=== PATIENT | female | born 1995 | race Two or more races ===

== ENCOUNTER 2020-08-08 18:52 | Emergency (ER) | payer BC ==
[2020-08-08 19:01] VITALS: BP 95/62; PULSE 100; TEMP 98.5; BMI 32.0
[2020-08-08] MEDS ORDERED: DEXTROSE 5%-LACTATED RINGERS 500 ML IV SCH (20:25)
[2020-08-08] MEDS ORDERED: DEXTROSE 5%-LACTATED RINGERS 1,000 ML IV SCH (21:25)
[2020-08-08 21:50] LABS: BASO % 0.2 % (0-2.0); EOS % 4.6 % (0-4.5); HEMATOCRIT 34.1 % (32.4-45.2); HEMOGLOBIN 11.2 GM/dL (10.7-15.3); LYMPH % 22.3 % (8-40); MCH 27.1 pg (25.7-33.7); MEAN CELL VOLUME 82.2 fl (80-96); MEAN PLT VOLUME 12.7 fl (7.5-11.1); MONO % 7.3 % (3.8-10.2); NEUT % 65.6 % (42.8-82.8); RBC 4.15 M/mm3 (3.60-5.2); RDW 15.1 % (11.6-15.6); WHITE BLOOD COUNT 11.9 K/mm3 (4.0-10.0)
[2020-08-08 21:52] LABS: URINE APPEARANCE CLOUDY; URINE BILIRUBIN NEGATIVE (NEGATIVE); URINE COLOR YELLOW; URINE GLUCOSE (UA) TRACE (NEGATIVE); URINE KETONE NEGATIVE (NEGATIVE); URINE LEUK ESTERASE NEGATIVE (NEGATIVE); URINE NITRITE NEGATIVE (NEGATIVE); URINE PROTEIN NEGATIVE (NEGATIVE); URINE UROBILINOGEN 0.2 mg/dL (0.2-1.0)
[2020-08-08 22:16] LABS: CALCIUM 7.8 mg/dL (8.5-10.1)
[2020-08-08 22:17] LABS: ALBUMIN 2.5 g/dl (3.4-5.0); BLOOD UREA NITROGEN 5.1 mg/dL (7-18)
[2020-08-08 22:20] LABS: CREATININE 0.4 mg/dL (0.55-1.3)
[2020-08-08 22:21] LABS: BILIRUBIN,TOTAL 0.2 mg/dL (0.2-1)
[2020-08-08 22:24] LABS: PLATELET COUNT 134 K/MM3 (134-434); PLATELET ESTIMATE DECREASED
[2020-08-08] MEDS ORDERED: ONDANSETRON 4 MG/2 ML VIAL ONE (23:00)
[2020-08-08] MEDS ORDERED: ONDANSETRON 4 MG/2 ML VIAL IVPB ONE (23:00)
[2020-08-08] MEDS ORDERED: ACETAMINOPHEN INJECTION 100 ML IVPB ONE (23:41)
[2020-08-08] MEDS ORDERED: ACETAMINOPHEN 1000 MG/100 ML VIAL (NON FORMULARY) IVPB ONE (23:45)
== END 2020-08-09 01:13 | disposition home or self-care (01) ==
LOC: JER 18:52
PROC: 3E0333Z Introduction of Anti-inflammatory into Peripheral Vein, Percutaneous Approach (ICD-10-PCS; principal; 2020-08-08)
PROC: 3E033GC Introduction of Other Therapeutic Substance into Peripheral Vein, Percutaneous Approach (ICD-10-PCS; 2020-08-08)
PROC: 3E033GC Introduction of Other Therapeutic Substance into Peripheral Vein, Percutaneous Approach (ICD-10-PCS; 2020-08-08)
PROC: 3E033GC Introduction of Other Therapeutic Substance into Peripheral Vein, Percutaneous Approach (ICD-10-PCS; 2020-08-08)
DX: O21.9 Vomiting of pregnancy, unspecified (principal); Z3A.27 27 weeks gestation of pregnancy
CPT/HCPCS: 36415; 76815; 80053; 81003; 85025; 99284-25; C9803; J0131; U0003; U0005

== ENCOUNTER 2020-09-13 23:36 | Emergency (ER) | payer BC ==
[2020-09-13] MEDS ORDERED: ACETAMINOPHEN 500 MG TABLET (FP) PO ONE (23:54)
[2020-09-14 00:10] VITALS: BP 100/66; PULSE 103; TEMP 98.1; BMI 32.9
[2020-09-14] MEDS ORDERED: CEPHALEXIN MONOHYDRATE 500 MG CAPSULE (UD) PO ONE (00:16)
[2020-09-14] MEDS ORDERED: DIPHTH,PERTUSS(ACELL),TET 0.5 ML DISP.SYRIN IM ONE ×2 (00:27→00:38)
[2020-09-14] MEDS ORDERED: ACETAMINOPHEN 500 MG TABLET (FP) ONE (00:35)
[2020-09-14] MEDS ORDERED: CEPHALEXIN MONOHYDRATE 500 MG CAPSULE (UD) ONE (00:38)
== END 2020-09-14 00:55 | disposition home or self-care (01) ==
LOC: JER 23:36
PROC: 3E0234Z Introduction of Serum, Toxoid and Vaccine into Muscle, Percutaneous Approach (ICD-10-PCS; principal; 2020-09-14)
DX: S60.112A Contusion of left thumb with damage to nail, initial encounter (principal)
CPT/HCPCS: 73140-TC-LT-FY; 90715; 99284-25

== ENCOUNTER 2020-11-02 17:20 | Inpatient (IN) | payer BC ==
[2020-11-02] MEDS ORDERED: ELECTROLYTE-148 SOLN 1,000 ML IV SCH ×3 (17:30→21:15)
[2020-11-02 18:10] VITALS: BMI 27.4
[2020-11-02 20:56] LABS: HEMATOCRIT 38.6 % (32.4-45.2); HEMOGLOBIN 12.9 GM/dL (10.7-15.3); MCH 27.7 pg (25.7-33.7); MCHC 33.4 g/dl (32.0-36.0); MEAN PLT VOLUME 12.1 fl (7.5-11.1); PLATELET COUNT 63 10^3/uL (134-434); RBC 4.65 M/mm3 (3.60-5.2); RDW 18.6 % (11.6-15.6); WHITE BLOOD COUNT 10.1 K/mm3 (4.0-10.0)
[2020-11-02] MEDS ORDERED: PROMETHAZINE HCL 25 MG/1 ML VIAL IVPUSH ONE (21:01)
[2020-11-02] MEDS ORDERED: BUTORPHANOL TARTRATE 2 MG/ML VIAL IVPB ONE (21:01)
[2020-11-02] MEDS ORDERED: DEXTROSE 5%-LACTATED RINGERS 1,000 ML IV SCH (21:15)
[2020-11-02] MEDS ORDERED: OXYTOCIN 30 UNITS in 0.9% NS 30 UNIT/500 ML INFUS.BAG IVPB SCH (21:30)
[2020-11-02] MEDS ORDERED: OXYTOCIN 30 UNITS in 0.9% NS 30 UNIT/500 ML INFUS.BAG IVPB ONE (22:45)
[2020-11-03] MEDS ORDERED: BUTORPHANOL TARTRATE 2 MG/ML VIAL ONE (00:08)
[2020-11-03] MEDS ORDERED: PROMETHAZINE HCL 25 MG/1 ML VIAL ONE (00:08)
[2020-11-03 04:07] LABS: BASO % 0.5 % (0-2.0); EOS % 0.5 % (0-4.5); HEMATOCRIT 39.1 % (32.4-45.2); HEMOGLOBIN 12.9 GM/dL (10.7-15.3); LYMPH % 23.9 % (8-40); MCH 27.2 pg (25.7-33.7); MCHC 32.9 g/dl (32.0-36.0); MEAN CELL VOLUME 82.7 fl (80-96); MEAN PLT VOLUME 11.1 fl (7.5-11.1); MONO % 7.3 % (3.8-10.2); NEUT % 67.8 % (42.8-82.8); PLATELET COUNT 60 10^3/uL (134-434); RBC 4.73 M/mm3 (3.60-5.2); RDW 18.1 % (11.6-15.6); WHITE BLOOD COUNT 11.1 K/mm3 (4.0-10.0)
[2020-11-03 04:14] LABS: INR 0.92 (0.83-1.09); PROTHROMBIN TIME (PATIENT) 11.3 SEC (9.7-13.0)
[2020-11-03 04:17] LABS: ACTIVATED PTT 25.3 SECONDS (25.2-36.5)
[2020-11-03] MEDS ORDERED: ACETAMINOPHEN 325 MG TABLET (FP) ONE (09:48)
[2020-11-03 10:07] LABS: BASO % 0.2 % (0-2.0); EOS % 0.6 % (0-4.5); HEMATOCRIT 38.8 % (32.4-45.2); HEMOGLOBIN 12.8 GM/dL (10.7-15.3); LYMPH % 25.1 % (8-40); MCH 27.4 pg (25.7-33.7); MCHC 33.1 g/dl (32.0-36.0); MEAN CELL VOLUME 82.6 fl (80-96); MONO % 7.8 % (3.8-10.2); NEUT % 66.3 % (42.8-82.8); RBC 4.69 M/mm3 (3.60-5.2); WHITE BLOOD COUNT 10.8 K/mm3 (4.0-10.0)
[2020-11-03 10:43] LABS: PLATELET ESTIMATE DECREASED
[2020-11-03 10:45] LABS: MEAN PLT VOLUME 12.1 fl (7.5-11.1); PLATELET COUNT 60 10^3/uL (134-434)
[2020-11-03] MEDS ORDERED: FENTANYL/BUPIVACAINE/NS/PF - PCEA - 50 ML DISP.SYRIN EP ONE ×3 (11:21→21:06)
[2020-11-03] MEDS ORDERED: NALOXONE HCL 0.4 MG/ML VIAL IVPUSH PRN (12:38)
[2020-11-03] MEDS ORDERED: FENTANYL/BUPIVACAINE/NS/PF - PCEA - 50 ML DISP.SYRIN EP SCH (12:45)
[2020-11-03 14:10] LABS: POC NITRAZINE POS
[2020-11-03 16:52] LABS: BASO % 0.3 % (0-2.0); EOS % 1.1 % (0-4.5); HEMATOCRIT 38.1 % (32.4-45.2); HEMOGLOBIN 12.5 GM/dL (10.7-15.3); LYMPH % 17.7 % (8-40); MCH 27.1 pg (25.7-33.7); MCHC 32.7 g/dl (32.0-36.0); MEAN CELL VOLUME 82.9 fl (80-96); MONO % 5.9 % (3.8-10.2); RDW 18.4 % (11.6-15.6); WHITE BLOOD COUNT 11.9 K/mm3 (4.0-10.0)
[2020-11-03 18:18] LABS: MEAN PLT VOLUME 12.1 fl (7.5-11.1); PLATELET COUNT 60 10^3/uL (134-434); PLATELET ESTIMATE DECREASED
[2020-11-03 23:05] LABS: BASO % 0.2 % (0-2.0); EOS % 0.6 % (0-4.5); HEMATOCRIT 39.3 % (32.4-45.2); HEMOGLOBIN 12.8 GM/dL (10.7-15.3); LYMPH % 11.8 % (8-40); MCHC 32.6 g/dl (32.0-36.0); MEAN CELL VOLUME 82.9 fl (80-96); MONO % 6.8 % (3.8-10.2); NEUT % 80.6 % (42.8-82.8); RBC 4.73 M/mm3 (3.60-5.2); RDW 18.3 % (11.6-15.6)
[2020-11-03] MEDS ORDERED: ACETAMINOPHEN 650 MG SUPP.RECT RC ONE (23:45)
[2020-11-03 23:49] LABS: PLATELET ESTIMATE DECREASED
[2020-11-03 23:51] LABS: MEAN PLT VOLUME 12.1 fl (7.5-11.1); PLATELET COUNT 55 10^3/uL (134-434)
[2020-11-04] MEDS ORDERED: FENTANYL/BUPIVACAINE/NS/PF - PCEA - 50 ML DISP.SYRIN EP ONE (00:14)
[2020-11-04] MEDS ORDERED: ACETAMINOPHEN INJECTION 100 ML IVPB ONE (00:22)
[2020-11-04] MEDS ORDERED: MISOPROSTOL 200 MCG TABLET PV ONE (02:00)
[2020-11-04] MEDS ORDERED: MISOPROSTOL 200 MCG TABLET ONE (02:01)
[2020-11-04 02:39] LABS: CORD BASE EXCESS -5.9 mmol/L (0-2); CORD HCO3 19.8 mmHg (20-29); CORD PCO2 39.7 mmHg (30-78); CORD pH 7.315 (7.14-7.44)
[2020-11-04 02:42] LABS: CORD BASE EXCESS -5.9 mmol/L (0-2); CORD HCO3 22.3 mmHg (20-29); CORD pH 7.225 (7.14-7.44)
[2020-11-04] MEDS ORDERED: WITCH HAZEL 50% (TUCKS) 40 PAD/JAR PAD TP PRN (02:50)
[2020-11-04] MEDS ORDERED: BENZOCAINE 20% 57 GM BOTTLE TP PRN (02:50)
[2020-11-04] MEDS ORDERED: METHYLERGONOVINE MALEATE 0.2 MG/1 ML AMP IM PRN (02:50)
[2020-11-04] MEDS ORDERED: BENZOCAINE 28 GM HEMORRHOIDAL OINTMENT TP PRN (02:50)
[2020-11-04] MEDS ORDERED: BISACODYL 10 MG SUPP.RECT RC PRN (02:50)
[2020-11-04] MEDS ORDERED: LEVOTHYROXINE NA 75 MCG TABLET (FP) PO ONE (02:54)
[2020-11-04] MEDS ORDERED: CARBOPROST TROMETHAMINE 250 MCG/ML AMPUL IM ONE (02:58)
[2020-11-04] MEDS ORDERED: OXYTOCIN 20 UNITS in 0.9% NS 20 UNIT/1,000 ML INFUS.BAG IV ONE (03:00)
[2020-11-04] MEDS ORDERED: ACETAMINOPHEN 1000 MG/100 ML VIAL (NON FORMULARY) IVPB ONE (03:12)
[2020-11-04] MEDS: IBUPROFEN 600 MG TABLET (FP) PO PRN ×3 (03:33→14:59)
[2020-11-04] MEDS ORDERED: OXYTOCIN 20 UNITS in 0.9% NS 1000 ML INFUS.BAG IV ONE (06:39)
[2020-11-04] MEDS ORDERED: OXYTOCIN 20 UNITS in 0.9% NS 20 UNIT/1,000 ML INFUS.BAG IV SCH (06:45)
[2020-11-04] MEDS: FENTANYL/BUPIVACAINE/NS/PF - PCEA - 50 ML DISP.SYRIN EP SCH ×2 (06:55→20:13)
[2020-11-04] MEDS ORDERED: MISOPROSTOL 100 MCG TABLET CRUSH SCH (08:00)
[2020-11-04] MEDS: CEFAZOLIN 1 GM/D5W 1 GM/50 ML BAG IVPB SCH ×2 (09:30→17:36)
[2020-11-04] MEDS: LEVOTHYROXINE NA 75 MCG TABLET (FP) PO SCH (09:48)
[2020-11-04] MEDS: PRENATAL VITAMINS W/ FOLIC ACID TABLET (FP) PO SCH (09:48)
[2020-11-04] MEDS: SENNOSIDES/DOCUSATE COMBO (SENNA PLUS) TABLET (UD) PO SCH ×2 (09:52→21:45)
[2020-11-04] MEDS: FERROUS SO4 325 MG TABLET (FP) PO SCH ×2 (09:56→21:46)
[2020-11-04 16:12] LABS: RETICULOCYTES 2.85 % (0.5-1.5)
[2020-11-04 16:38] LABS: URIC ACID 3.7 mg/dL (2.6-7.2)
[2020-11-04 19:07] LABS: HEMATOCRIT 32.3 % (32.4-45.2); HEMOGLOBIN 10.5 GM/dL (10.7-15.3); MCHC 32.4 g/dl (32.0-36.0); MEAN CELL VOLUME 83.5 fl (80-96); MEAN PLT VOLUME 10.8 fl (7.5-11.1); PLATELET COUNT 77 10^3/uL (134-434); RBC 3.87 M/mm3 (3.60-5.2); RDW 18.4 % (11.6-15.6); WHITE BLOOD COUNT 14.4 K/mm3 (4.0-10.0)
[2020-11-05] MEDS: CEFAZOLIN 1 GM/D5W 1 GM/50 ML BAG IVPB SCH (01:37)
[2020-11-05] MEDS: LEVOTHYROXINE NA 75 MCG TABLET (FP) PO SCH (06:36)
[2020-11-05] MEDS: IBUPROFEN 600 MG TABLET (FP) PO PRN ×2 (06:38→19:54)
[2020-11-05] MEDS: FERROUS SO4 325 MG TABLET (FP) PO SCH ×2 (09:47→22:08)
[2020-11-05] MEDS: SENNOSIDES/DOCUSATE COMBO (SENNA PLUS) TABLET (UD) PO SCH ×2 (09:47→22:08)
[2020-11-05] MEDS: PRENATAL VITAMINS W/ FOLIC ACID TABLET (FP) PO SCH (09:47)
[2020-11-05 10:10] LABS: BASO % 0.5 % (0-2.0); EOS % 2.6 % (0-4.5); HEMOGLOBIN 10.2 GM/dL (10.7-15.3); LYMPH % 22.5 % (8-40); MCH 27.4 pg (25.7-33.7); MCHC 32.9 g/dl (32.0-36.0); MEAN CELL VOLUME 83.4 fl (80-96); MEAN PLT VOLUME 11.1 fl (7.5-11.1); NEUT % 70.4 % (42.8-82.8); PLATELET COUNT 75 10^3/uL (134-434); RBC 3.72 M/mm3 (3.60-5.2); RDW 18.4 % (11.6-15.6); WHITE BLOOD COUNT 11.8 K/mm3 (4.0-10.0)
[2020-11-05] MEDS: ACETAMINOPHEN 325 MG TABLET (FP) PO PRN (13:56)
[2020-11-06] MEDS: ACETAMINOPHEN 325 MG TABLET (FP) PO PRN (06:20)
[2020-11-06] MEDS: LEVOTHYROXINE NA 75 MCG TABLET (FP) PO SCH (06:20)
[2020-11-06] MEDS: FENTANYL/BUPIVACAINE/NS/PF - PCEA - 50 ML DISP.SYRIN EP SCH (07:22)
[2020-11-06 08:52] VITALS: BP 117/68; PULSE 106; TEMP 97.8
[2020-11-06 09:56] LABS: BASO % 0.4 % (0-2.0); EOS % 3.1 % (0-4.5); HEMATOCRIT 32.1 % (32.4-45.2); HEMOGLOBIN 10.7 GM/dL (10.7-15.3); MCH 27.9 pg (25.7-33.7); MCHC 33.4 g/dl (32.0-36.0); MEAN CELL VOLUME 83.5 fl (80-96); MEAN PLT VOLUME 11.6 fl (7.5-11.1); MONO % 4.6 % (3.8-10.2); NEUT % 65.9 % (42.8-82.8); PLATELET COUNT 91 10^3/uL (134-434); RBC 3.84 M/mm3 (3.60-5.2); RDW 18.4 % (11.6-15.6)
[2020-11-06] MEDS: PRENATAL VITAMINS W/ FOLIC ACID TABLET (FP) PO SCH (10:28)
[2020-11-06] MEDS: SENNOSIDES/DOCUSATE COMBO (SENNA PLUS) TABLET (UD) PO SCH (10:28)
[2020-11-06] MEDS: FERROUS SO4 325 MG TABLET (FP) PO SCH (10:28)
== END 2020-11-06 12:40 | disposition home or self-care (01) | DRG 768 ==
LOC: JDEL 17:20 → JLDR 17:21 → J3W 11-04 04:30
PROVIDERS: ADMIT Obstetrics & Gynecology; ATTEND Obstetrics & Gynecology
PROC: 3E033VJ Introduction of Other Hormone into Peripheral Vein, Percutaneous Approach (ICD-10-PCS; principal; 2020-11-02)
PROC: 0DQR0ZZ Repair Anal Sphincter, Open Approach (ICD-10-PCS; 2020-11-04)
PROC: 10E0XZZ Delivery of Products of Conception, External Approach (ICD-10-PCS; 2020-11-04)
PROC: 0W8NXZZ Division of Female Perineum, External Approach (ICD-10-PCS; 2020-11-04)
PROC: 30233R1 Transfusion of Nonautologous Platelets into Peripheral Vein, Percutaneous Approach (ICD-10-PCS; 2020-11-04)
DX: O42.113 Preterm premature rupture of membranes, onset of labor more than 24 hours following rupture, third trimester (principal); Z37.0 Single live birth; O72.1 Other immediate postpartum hemorrhage; O70.20 Third degree perineal laceration during delivery, unspecified; O99.12 Other diseases of the blood and blood-forming organs and certain disorders involving the immune mechanism complicating childbirth; D69.6 Thrombocytopenia, unspecified; O24.420 Gestational diabetes mellitus in childbirth, diet controlled; O99.284 Endocrine, nutritional and metabolic diseases complicating childbirth; E03.9 Hypothyroidism, unspecified; O90.81 Anemia of the puerperium; D64.9 Anemia, unspecified; O69.81X0 Labor and delivery complicated by cord around neck, without compression, not applicable or unspecified; Z3A.39 39 weeks gestation of pregnancy
CPT/HCPCS: 36415; 36430; 36600; 59409; 82803; 82947; 82962; 82977; 83010; 83986-QW; 84450; 84460; 84550; 85025; 85027; 85045; 85610; 85730; 86850; 86900; 86901; J0131; P9034